=== PATIENT | female | born 1945 | race Caucasian/White ===

== ENCOUNTER → 2018-11-12 | Outpatient (CLI) | payer MEDICARE ==
--- NOTE | 2018-11-12 11:37 | Diagnostic Imaging Report ---
EXAM: LUMBAR SPINE 2 OR 3 VIEW INDICATION: ACUTE RIGHT -SIDED LOW BACK PAIN WITH RIGHT-SIDED SCIATICA COMPARISON: None. FINDINGS: There are five lumbar type vertebral bodies. Moderate right apex lumbar curvature. Advanced diffuse degenerative endplate changes. Advanced lower lumbar facet arthropathy. Vertebral body heights are preserved. No fractures. Cholecystectomy clips. IMPRESSION: Moderate to advanced spondylotic and scoliotic changes as above. No acute radiographic findings. Dictated by: Dictated on workstation # [id number]
== END ==
LOC: RAD FS 10:49
PROVIDERS: ATTEND Family Medicine
DX: M47.816 Spondylosis without myelopathy or radiculopathy, lumbar region (principal); M46.86 Other specified inflammatory spondylopathies, lumbar region; M41.86 Other forms of scoliosis, lumbar region; Z90.49 Acquired absence of other specified parts of digestive tract
CPT/HCPCS: 72100